=== PATIENT | female | born 1990 | race Caucasian/White ===

== ENCOUNTER 2016-04-14 18:40 | Outpatient (CLI) | payer OTHER ==
[~2016-04-14] VITALS: Ht 152.4 cm; Wt 68.2 kg
[~2016-04-14 18:40] MED LIST: ONDA4TAB10 SL; PRENTAB26 PO
[2016-04-14 20:19] VITALS: Ht 152.4 cm; Wt 68.2 kg
[2016-04-14] MEDS ORDERED: ACETAMINOPHEN 500 MG TAB PO ONE (20:51)
[2016-04-14] MEDS ORDERED: ACETAMINOPHEN 500 MG TAB PO STA (20:52)
[2016-04-14] MEDS ORDERED: NURSING VERBAL MED ORDER ONE (21:00)
[2016-04-14 22:04] LABS: URINE APPEARANCE CLEAR (CLEAR); URINE BILIRUBIN NEG (NEG); URINE COLOR YELLOW; URINE EPITHELIAL CELL AUTO 20-30 /lpf (0-5); URINE NITRITE NEG (NEG); URINE PH 6.5 (4.5-7.5); URINE SPECIFIC GRAVITY 1.026 (1.000-1.030); UROBILINOGEN NEG (NEG); ZZUR CULT IF INDIC CLEAN CATCH NO
[2016-04-14 22:05] LABS: MANUAL MICROSCOPIC REQUIRED? NO; REVIEW REQ? NO
--- NOTE | 2016-04-14 22:34 | Progress Note ---
Progress Note Observation Note 24 WF P1001 at 24.5 weeks seen on L&D with RLQ pain starting today. She is a patient at [facility] in [place]. No nausea or vomiting. No leakage of fluid or any bleeding. No history of labor. FHT Cat 1 with no contractions noted. Exam abdomen is soft and non-tender. Cervix is long/ closed and thick. Labs show 4+ Ketones. Last 24 Hours Test 04/14/16 00:00 Urine Color YELLOW Urine Appearance CLEAR Urine pH 6.5 Urine Specific [place] 1.026 Urine Protein NEG Urine Glucose (UA) NEG Urine Ketones 4+ Urine Occult Blood 1+ Urine Nitrite NEG Urine Bilirubin NEG Urine Urobilinogen NEG Urine Leukocyte Esterase NEG Urine WBC (Auto) 1-5 /hpf Urine RBC (Auto) 5-10 /hpf Urine Hyaline Casts (Auto) 1-5 /lpf Urine Epithelial Cells (Auto) 20-30 /lpf Urine Bacteria (Auto) NEG Will d/c home and told patient to continue to hydrate. Follow up with her OB/ [employer] next week in [place].
== END 2016-04-14 22:42 | disposition home or self-care (01) ==
LOC: C.OPB 18:40 → C.LD 18:41 → C.OPB 22:42
PROVIDERS: ATTEND Obstetrics & Gynecology
DX: O26.892 Other specified pregnancy related conditions, second trimester (principal); R10.31 Right lower quadrant pain; Z3A.24 24 weeks gestation of pregnancy

== ENCOUNTER → 2016-11-25 | Outpatient (CLI) | payer OTHER ==
[~2016-11-25] MED LIST changes: -ONDA4TAB10 SL
[2016-11-25 11:36] LABS: HEMATOCRIT 38.6 % (37-47); MEAN CELL VOLUME 93.5 fL (80-100); MEAN CORPUSCULAR HGB CONC 33.2 g/dl (32-36); MEAN PLATELET VOLUME 10.8 fL (7.4-10.4); PLATELET COUNT 195 K/uL (130-400); RED BLOOD COUNT 4.13 M/uL (4.2-5.4); WHITE BLOOD COUNT 4.46 K/uL (4.8-10.8)
[2016-11-25 12:15] LABS: BLOOD UREA NITROGEN 15 mg/dl (7-18); BUN/CREATININE RATIO 17.7 (10-20); CALCIUM 9.8 mg/dl (8.5-10.1); CARBON DIOXIDE 27 mmol/L (21-32); CHLORIDE 109 mmol/L (98-107); CREATININE 0.83 mg/dl (0.60-1.20); GLUCOSE,FASTING 82 mg/dl (70-99); POTASSIUM 4.6 mmol/L (3.5-5.1); SODIUM 142 mmol/L (136-145)
[2016-11-25 12:26] LABS: CHOLESTEROL 125 mg/dl (0-200); CHOLESTEROL/HDL RATIO 2.4; HDL CHOLESTEROL 52 mg/dl; LDL CHOLESTEROL CALCULATED 62 mg/dl; THYROID STIMULATING HORMONE 0.704 uIu/ml (0.300-4.500); TRIGLYCERIDES 54 mg/dl (0-150); VERY LOW DENSITY LIPOPROT CALC 11 mg/dl
== END | disposition home or self-care (01) ==
LOC: C.LAB 11:13
PROVIDERS: ATTEND Physician Assistant
DX: Z00.00 Encounter for general adult medical examination without abnormal findings (principal); Z13.21 Encounter for screening for nutritional disorder; R53.83 Other fatigue